=== PATIENT | female | born 1965 | race American Indian/Alaskan Native ===

== ENCOUNTER 2017-05-14 12:02 | Inpatient (IN) | payer OTHER ==
--- NOTE | 2017-05-14 13:02 | ED PDOC ---
Arrival/HPI - General Chief Complaint: Abdominal Pain Time Seen by Provider: 05/14/17 12:04 Historian: Patient - History of Present Illness Narrative History of Present Illness (Text): 05/14/17 12:43 Efrain Kern is a 52 year old female, whose past medical history includes PE (on Coumadin) and hypertension, who presents to the emergency department complaining of LUQ abdominal pain and left lower chest discomfort accompanied with nausea since yesterday morning. Patient describes her pain to be constant, positional, and non-exertional. Patient denies any vomiting, shortness of breath , or any other complaint at this time. Time/Duration: 24 hours (yesterday morning) Symptom Onset: Gradual Symptom Course: Unchanged Activities at Onset: Rest Context: Home Past Medical History - Provider Review Nursing Documentation Reviewed: Yes - Infectious Disease Hx of Infectious Diseases: None - Cardiac Hx Cardiac Disorders: Yes Hx Hypertension: Yes - Pulmonary Hx Asthma: Yes Hx Pulmonary Embolism: Yes - Neurological Hx Neurological Disorder: Yes Hx Seizures: Yes (hx of 3-4 years ago) - HEENT Hx HEENT Disorder: No - Renal Hx Renal Disorder: No - Endocrine/Metabolic Hx Endocrine Disorders: No - Hematological/Oncological Hx Blood Disorders: Yes Hx Anemia: Yes Hx Blood Transfusions: No Other/Comment: iron infusions - Integumentary Hx Dermatological Disorder: No - Musculoskeletal/Rheumatological Hx Musculoskeletal Disorders: No - Gastrointestinal Hx Gastrointestinal Disorders: No - Genitourinary/Gynecological Hx Genitourinary Disorders: No - Psychiatric Hx Psychophysiologic Disorder: No Hx Substance Use: No - Surgical History Hx Hysterectomy: Yes Hx Tubal Ligation: Yes Other/Comment: bowel obstruction repair, CYST REMOVAL. HERNIA REPAIR - Anesthesia Hx Anesthesia: Yes Hx Anesthesia Reactions: No Family/Social History - Physician Review Nursing Documentation Reviewed: Yes Family/Social History: No Known Family HX Smoking Status: Never Smoked Hx Alcohol Use: No Hx Substance Use: No Hx Substance Use Treatment: No Allergies/Home Meds Allergies/Adverse Reactions: Allergies amoxicillin Allergy (Verified 05/14/17 12:10) RASH metoclopramide Allergy (Verified 05/14/17 12:10) RASH Home Medications: Home Meds Medication Instructions Recorded Confirmed Albuterol 0.09 mg IH PRN PRN 08/05/14 05/14/17 Losartan Potassium 100 mg PO DAILY 08/05/14 05/14/17 Meclizine Hydrochloride [Meclizine 50 mg PO DAILY 08/05/14 05/14/17 HCl] Ondansetron ODT [Zofran ODT] 4 mg PO PRN PRN 08/05/14 05/14/17 Propranolol Hydrochloride [Inderal] 10 mg PO DAILY 08/05/14 05/14/17 Warfarin [Coumadin] 5 mg PO DAILY 08/05/14 05/14/17 Physical Exam - Physical Exam Narrative Physical Exam (Text): - Review of Systems Constitutional: Normal. absent: Fatigue, Weight Change, Fevers Eyes: Normal ENT: Normal Respiratory: Normal absent: SOB, Cough, Sputum Cardiovascular: Left Lower chest pain. absent: Palpitations, Syncope Gastrointestinal: LUQ abdominal pain. absent: Diarrhea, Nausea, Vomiting Genitourinary: Normal. absent: Dysuria, Frequency, Hematuria Musculoskeletal: Normal. absent: Arthralgias, Back Pain, Neck Pain Skin: Normal Neurological: Normal absent: Focal Weakness Endocrine: Normal Hemo/Lymphatic: Normal Psychiatric: Normal - Physical exam Patient appears age appropriate, speaking full sentences without difficulty - Systems Exam Head: Present: Atraumatic, Normocephalic Pupils: Present: PERRL Extraocular Muscles: Present: EOMI Conjunctiva: Present: Normal Mouth: Present: Moist Mucous Membranes Neck: Present: Normal Range of Motion. No: MIDLINE TENDERNESS, Paraspinal Tenderness Respiratory/Chest: Present: Clear to Auscultation, Good Air Exchange. No: Respiratory Distress, Accessory Muscle Use, Tachypnic Cardiovascular: Present: Regular Rate and Rhythm, Normal S1, S2, Peripheral Pulses Present. No: Murmurs Abdomen: Present: Normal Bowel Sounds, No: Tenderness, Peritoneal Signs, Rebound, Guarding, Distention Back: Present: Normal Inspection. No: Midline Tenderness, Paraspinal Tenderness Upper Extremity: Present: Normal Inspection. No: Cyanosis, Edema Lower Extremity: Present: Normal Inspection. No: Edema Neurological: Present: GCS=15, Speech Normal, cranial nerves II through XII fully intact with no cerebellar abnormality, neuro-sensory fully intact. No focal neurological deficits. Skin: Present: Warm, Dry, Normal Color. No: Rashes Lymphatic: Present: OX3, NI, NC Psychiatric: Present: Alert, Oriented x 3, Normal Insight, Normal Concentration Vital Signs Reviewed: Yes Vital Signs Temp Pulse Resp BP Pulse Ox 05/14/17 12:15 97.7 F 70 19 144/83 98 Temperature: Afebrile Blood Pressure: Normal Pulse: Regular Respiratory Rate: Normal Appearance: Positive for: Well-Appearing, Non-Toxic, Comfortable Pain Distress: None Mental Status: Positive for: Alert and Oriented X 3 Medical Decision Making ED Course and Treatment: 05/14/17 12:45 Impression: 52 year old female complaining of LUQ abdominal pain and left lower chest discomfort accompanied by nausea since yesterday morning. Differential Diagnosis included but are not limited to: abd pain, PE Plan: -- EKG -- Chest X-ray -- Abdomen and Pelvis CT with contrast -- Angio Chest CT -- Labs -- Toradol -- Reassess and disposition Prior Visits: Notes and results from previous visits were reviewed. Patient last seen in the ED on 08/08/16 for left leg pain for five days. Patient was discharged home. Progress Notes: EKG shows sinus bradycardia at [address]-segment elevations, normal intervals. Interpreted by me. Report Date : 05/14/2017 14:38:35 Procedure: Chest xray Dictator : Vineet Qureshi MD IMPRESSION: No active disease. Report Date : 05/14/2017 16:32:40 PROCEDURE: CT Chest with contrast (Pulmonary Angiogram) Dictator : Paul Iglesias MD IMPRESSION: Unremarkable CT pulmonary angiogram. No pulmonary embolus. 05/14/17 17:12 pt states she still has L. lower chest discomfort will obs for r/o ACS pt states she [place] [facility] aware of and agrees with plan dw Dr. Johnson, accepted to her service with Drs. Holden and luis Bo on consult - Lab Interpretations Lab Results: 05/14/17 13:45 05/14/17 13:45 Lab Results 05/14/17 13:45: PT 21.8 H, INR 2.02 H, APTT 36.7 H 05/14/17 13:45: WBC 3.9 L D, RBC 4.40, Hgb 12.9, Hct 38.3, MCV 87.0, MCH 29.3, MCHC 33.7, RDW 13.0, Plt Count 253, MPV 9.9, Gran % 36.8 L, Lymph % (Auto) 55.1 H, Teton % (Auto) 5.6, Eos % (Auto) 1.5, Baso % (Auto) 1.0, Gran # 1.45, Lymph # 2.2, Teton # 0.2, Eos # 0.1, Baso # 0.04 05/14/17 13:45: Sodium 142, Potassium 4.0, Chloride 101, Carbon Dioxide 29, Anion Gap 16, BUN 13, Creatinine 0.8, Est GFR ( Amer) > 60, Est GFR (Non- Af Amer) > 60, Random Glucose 91, Calcium 9.6, Total Bilirubin 0.5, AST 30, ALT 32, Alkaline Phosphatase 104, Lactate Dehydrogenase 579, Total Creatine Kinase 693 H, CK-MB (CK-2) 0.9, CK-MB (CK-2) % Cancelled, Troponin I < 0.01, Total Protein 8.9 H, Albumin 4.7, Globulin 4.2, Albumin/Globulin Ratio 1.1, Lipase 39 I have reviewed the lab results: Yes - RAD Interpretation Radiology Orders: 05/14/17 12:58 ANGIO CHEST/ABDOMEN/PELVIS [CT] Stat 05/14/17 13:00 CHEST PORTABLE [RAD] Stat - Medication Orders Current Medication Orders: Discontinued Medications Aspirin (Aspirin Chewable) 324 mg PO STAT STA Stop: 05/14/17 17:11 Barium Sulfate (Readi-Cat 2) Confirm Administered Dose 450 ml PO .STK-MED ONE Stop: 05/14/17 13:46 Iodixanol (Visipaque) Confirm Administered Dose 150 ml IV .STK-MED ONE Stop: 05/14/17 13:48 Ketorolac Tromethamine (Toradol) 30 mg IVP STAT STA Stop: 05/14/17 13:01 Last Admin: 05/14/17 13:42 Dose: 30 mg Nitroglycerin (Nitrostat Sl Tab) 0.3 mg SL STAT STA Stop: 05/14/17 17:11 - Scribe Statement The provider has reviewed the documentation as recorded by the Suly Holland Provider Scribe Attestation: All medical record entries made by the Scribe were at my direction and personally dictated by me. I have reviewed the chart and agree that the record accurately reflects my personal performance of the history, physical exam, medical decision making, and the department course for this patient. I have also personally directed, reviewed, and agree with the discharge instructions and disposition. Disposition/Present on Arrival - Present on Arrival Any Indicators Present on Arrival: No History of DVT/PE: Yes History of Uncontrolled Diabetes: No Urinary Catheter: No History of Decub. Ulcer: No History Surgical Site Infection Following: None - Disposition Have Diagnosis and Disposition been Completed?: Yes Diagnosis: Chest pain Disposition: HOSPITALIZED Disposition Time: 17:14 Patient Plan: Observation Patient Problems: Current Active Problems Problem Status Onset Chest pain Acute Condition: FAIR Discharge Instructions (ExitCare): Chest Pain (ED) Referrals: Demetrius Tijerina MD [Primary Care Provider] - Follow up with primary Forms: [employer] (Citizen Of [place])
[2017-05-14] MEDS ORDERED: Barium Sulfate Susp 2.1% w/v, 2.0% w/w 450 mL Bottle PO ONE (13:45)
[2017-05-14] MEDS ORDERED: Iodixanol 320 mg/ml 150 ml Bottle IV ONE (13:47)
[2017-05-14 13:55] LABS: BASO # 0.04 K/mm3 (0.0-2.0); EOS # 0.1 (0.0-0.7); EOS % 1.5 % (1.5-5.0); GRAN # 1.45 (1.4-6.5); GRAN % 36.8 % (50.0-68.0); HEMOGLOBIN 12.9 g/dL (12.0-16.0); LYMPH # 2.2 (1.2-3.4); LYMPH % 55.1 % (22.0-35.0); MEAN CORPUSCULAR HEMOGLOBIN 29.3 pg (25.0-35.0); MEAN CORPUSCULAR HGB CONC 33.7 g/dl (31.0-37.0); MEAN PLATELET VOLUME 9.9 fl (7.0-11.0); MONO # 0.2 (0.1-0.6); MONO % 5.6 % (1.0-6.0); PLATELET COUNT 253 10^3/uL (120.0-450.0); WHITE BLOOD COUNT 3.9 10^3/ul (4.5-11.0)
[2017-05-14 14:04] LABS: INR 2.02 (0.93-1.08); PARTIAL THROMBOPLASTIN TIME 36.7 Seconds (23.7-30.8); PROTHROMBIN TIME 21.8 Seconds (9.9-11.8)
[2017-05-14 14:05] LABS: ALB/GLOB RATIO 1.1 (1.1-1.8); ALBUMIN 4.7 g/dL (3.0-4.8); ALT/SGPT 32 U/L (7-56); AST/SGOT 30 U/L (15-39); BLOOD UREA NITROGEN 13 mg/dL (7-21); CALCIUM 9.6 mg/dL (8.4-10.5); GFR AFRICAN-AMERICAN > 60; GFR NON-AFRICAN AMERICAN > 60; LIPASE 39 U/L (23-300)
[2017-05-14 14:16] LABS: TROPONIN I < 0.01 ng/mL
[2017-05-14 14:21] LABS: CK-MB 0.9 ng/mL (0.0-3.6)
--- NOTE | 2017-05-14 14:40 | RAD ---
HISTORY: cp COMPARISON: 08/05/2014 FINDINGS: LUNGS: No active pulmonary disease. PLEURA: No significant pleural effusion identified, no pneumothorax apparent. CARDIOVASCULAR: Normal. OSSEOUS STRUCTURES: No significant abnormalities. VISUALIZED UPPER ABDOMEN: Normal. OTHER FINDINGS: None. IMPRESSION: No active disease.
--- NOTE | 2017-05-14 16:20 | CARD ---
APPROVED REPORT EKG Measurement Heart [id number] <Conclusion> Sinus bradycardia Otherwise normal ECG
--- NOTE | 2017-05-14 16:34 | CT ---
PROCEDURE: CT Chest with contrast (Pulmonary Angiogram) HISTORY: R/O PE ABDOMINAL PAIN COMPARISON: None available. TECHNIQUE: Axial computed tomography images were obtained of the chest in the pulmonary arterial phase of enhancement. Coronal and sagittal reformatted images were created and reviewed. Intravenous contrast dose: 150 cc of Visipaque Radiation dose: Total exam DLP = 1007 mGy-cm. This CT exam was performed using one or more of the following dose reduction techniques: Automated exposure control, adjustment of the mA and/or kV according to patient size, and/or use of iterative reconstruction technique. FINDINGS: PULMONARY ARTERIES: Unremarkable. No pulmonary embolism. AORTA: No acute findings. No thoracic aortic aneurysm. LUNGS: Unremarkable. No nodule, mass or pulmonary consolidation. PLEURAL SPACES: Unremarkable. No effusion or pneuomothorax. HEART: Unremarkable. No cardiomegaly. No significant pericardial effusion. LYMPH NODES: No lymphadenopathy. BONES, CHEST WALL: Unremarkable. No fracture or destructive lesion OTHER FINDINGS: Unremarkable. IMPRESSION: Unremarkable CT pulmonary angiogram. No pulmonary embolus. PROCEDURE: CT Abdomen and Pelvis with contrast HISTORY: R/O PE ABDOMINAL PAIN COMPARISON: None. TECHNIQUE: This CT exam was performed using one or more of the following dose reduction techniques: Automated exposure control, adjustment of the mA and/or kV according to patient size, and/or use of iterative reconstruction technique. FINDINGS: LIVER: Unremarkable. No gross lesion or ductal dilatation. GALLBLADDER AND BILE DUCTS: Unremarkable. PANCREAS: Unremarkable. No gross lesion or ductal dilatation. SPLEEN: Unremarkable. ADRENALS: Unremarkable. No mass. KIDNEYS AND URETERS: Unremarkable. No hydronephrosis. No solid mass. VASCULATURE: Unremarkable. No aortic aneurysm. BOWEL: Unremarkable. No obstruction. No gross mural thickening. APPENDIX: Normal appendix. PERITONEUM: Unremarkable. No free fluid. No free air. LYMPH NODES: Unremarkable. No enlarged lymph nodes. BLADDER: Unremarkable. REPRODUCTIVE: Unremarkable. BONES: No acute fracture. OTHER FINDINGS: Metallic artifact is seen in the pelvis related to surgical clips IMPRESSION: Unremarkable contrast enhanced CT of the abdomen and pelvis.
[2017-05-14] MEDS ORDERED: Pneumococcal 23-Valent Vaccine IM ONE (23:08)
[2017-05-15] MEDS: Enoxaparin 60 mg Syringe SC SCH ×3 (00:15→23:16)
--- NOTE | 2017-05-15 08:51 | HP ---
The patient was seen and examined in the emergency room on 05/14/2017. CHIEF COMPLAINT: Chest pain and abdominal pain. HISTORY OF PRESENT ILLNESS: Ms. Erlin Zuniga is a 52-year-old female with past medical history of PE, on Coumadin and hypertension and came to the emergency room complaining of left upper quadrant abdominal pain and left lower chest discomfort with nausea since yesterday morning. The patient described her pain to be constant in position and on exertion. The patient denies any vomiting, shortness of breath, or any other complaints. I saw the patient in the emergency room in the presence of the patient's . PAST MEDICAL HISTORY: Hypertension and PE, history of asthma, seizure 3 to 4 years ago, anemia, hysterectomy, tubal ligation, bowel obstruction repair, cyst removal and hernia repair. FAMILY HISTORY: Father and mother noncontributory. HABITS: Never smoked. Alcohol, never. Drug abuse, denied. ALLERGIES: THE PATIENT IS ALLERGIC TO AMOXYCILLIN AND METOCLOPRAMIDE. HOME MEDICATIONS: Albuterol, Losartan, Meclizine, Zofran, Inderal, Warfarin. PHYSICAL EXAMINATION: VITAL SIGNS: Temperature 97.7, pulse 70, respiratory rate 19, blood pressure 144/80, pulse oximetry 98%. HEENT: Head normocephalic and atraumatic. Eyes; PERRLA. Extraocular muscles intact. Clear conjunctiva. Nose patent. Mucous membrane moist. NECK: Supple. No carotid bruit. No thyromegaly. CHEST: Bilaterally symmetrical. HEART: S1 and S2 positive. LUNGS: Clear to auscultation. ABDOMEN: Soft. Bowel sounds normal. No organomegaly. EXTREMITIES: No edema. No cyanosis. NEUROLOGIC: The patient is awake, alert. Moving all four extremities. No focal deficit. LABORATORY DATA: White blood cell of 3.9, hemoglobin 12.9, hematocrit 38.6 and platelets 256. Sodium 142, potassium 4, BUN 30, creatinine 0.8, and glucose 91. ASSESSMENT AND PLAN: Ms. Efrain Kern is a 52-year-old lady with leukopenia, history of hypertension, pulmonary emboli, history of asthma; history of seizure, stable; hysterectomy, tubal ligation, bowel obstruction repair, cyst removal, hernia repair; now came for abdominal pain and chest pain. Scans were then done in the ER, we admitted the above patient for final diagnosis of chest pain. We admitted the patient to give aspirin, nitroglycerin, Pneumovax and Toradol. Consult called with pot washer and paper feeder and GI due to prophylaxis. Repeat labs. We will follow up. Claire Johnson MD
[2017-05-15] MEDS: Pantoprazole 40 mg EC Tab PO SCH (16:30)
[2017-05-15] MEDS: POLYETHYLENE GLYCOL 3350 17 GM/Dose PACKET PO SCH ×2 (18:05→21:31)
[2017-05-15] MEDS ORDERED: Dextrose 5%/0.45% NS 1,000 ML IV SCH (18:15)
--- NOTE | 2017-05-15 20:10 | CP.PCM.PN ---
Subjective - Date & Time of Evaluation Date of Evaluation: 05/15/17 Time of Evaluation: 16:15 Objective - Vital Signs/Intake and Output Vital Signs (last 24 hours): Temp Pulse Resp BP Pulse Ox 97.6 F 66 20 131/73 100 05/15/17 16:26 05/15/17 16:26 05/15/17 16:26 05/15/17 16:26 05/15/17 16:26 - Medications Medications: Current Medications Aspirin (Aspirin) 325 mg PO DAILY [facility] Last Admin: 05/15/17 09:43 Dose: 325 mg Enoxaparin Sodium (Lovenox) 50 mg SC Q12H [facility] PRN Reason: Protocol Last Admin: 05/15/17 11:50 Dose: 50 mg Famotidine (Pepcid) 40 mg PO HS [facility] Home Med (Home Med) 1 unit PO DAILY [facility] Dextrose/Sodium Chloride (Dextrose 5%/0.45% Ns 1000 Ml) 1,000 mls @ 50 mls/hr IV .Q20H [facility] Last Admin: 05/15/17 18:34 Dose: 50 mls/hr Ondansetron HCl (Zofran Inj) 4 mg IVP Q6H PRN PRN Reason: Nausea/Vomiting Last Admin: 05/15/17 14:44 Dose: 4 mg Pantoprazole Sodium (Protonix Ec Tab) 40 mg PO 0600,1600 [facility] Last Admin: 05/15/17 16:30 Dose: 40 mg Polyethylene Glycol (Miralax) 17 gm PO Q4H [facility] Last Admin: 05/15/17 18:05 Dose: 17 gm - Labs Labs: PT 21.8 Seconds (9.9-11.8) H 05/14/17 13:45 INR 2.02 (0.93-1.08) H 05/14/17 13:45 APTT 36.7 Seconds (23.7-30.8) H 05/14/17 13:45 Assessment and Plan - Assessment and Plan (Free Text) Assessment: this patient was seen and evaluated. Today with Jessica Wright APN. Chart and imaging studies reviewed. Complains of pain in epigastric and left upper quadrant area . On examination has mild tenderness in the epigastric area History of PE on anticoagulation being followed by Dr. Landa. 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 Patient says that this was noticed in the MRI done 3 years ago at [facility]. Does not remember having had follow-up Would request ultrasound scan of the abdomen to evaluate the gallbladder Patient's CPK is elevated, we will start IV hydration Would consider MRI of the abdomen with MRCP to further evaluate pancreas after review of the labs in a.m. Patient's INR is elevated would defer endoscopy evaluation at the present time continue PPI Would benefit from hematology follow-up. Patient mentioned that her last pulmonary embolism was 7 years ago patient was discussed with Dr. Johnson Thank you very much for allowing us to participate in the care of the patient
--- NOTE | 2017-05-15 21:48 | CON ---
DATE: 05/15/2017 GASTROENTEROLOGY CONSULT Seen and examined at the bedside earlier today. The chart was reviewed. REQUEST FOR CONSULT: Abdominal pain. HISTORY OF PRESENT ILLNESS: This is a 52-year-old female with a past medical history of PE on Coumadin, hypertension, and asthma, came to the emergency room with complaints of left upper quadrant abdominal pain and chest discomfort. The patient stated it started yesterday morning and also experienced nausea and denies any vomiting. The patient reports its acute onset with that. The patient states that she woke up with this, describes that it worsened. The pain is worse when she coughs or moves. She does have history of chronic constipation and takes Linzess daily. Her last bowel movement was Saturday. Denies any melena or bright red blood. She does report of acid reflux and states that she takes stomach medicine at home, but is unsure of the name. She had an endoscopy and colonoscopy about [address] [facility] and was told that she had irritable bowel syndrome and internal hemorrhoids and chronic gastritis. She denies any shortness of breath, does report fluctuating weight. She did have thyroid ultrasound done, but she is not sure of the results. She also does report that she was told she has a lesion on the tail end of her pancreas, she had an MRI done a year or so ago and she recalls that she was told that she needed an MRI every few months, but recently has not had any recent MRI. She cannot recall her previous GI doctor's name. On admission, she had a CT angio of the chest, abdomen, and pelvis and that was negative for PE. PAST MEDICAL HISTORY: Hypertension, asthma, PE, on Coumadin, her last dose of Coumadin was on Saturday. She was placed on Lovenox in hospital. Seizures, anemia, she is on iron infusions, history of lesion on the pancreas, she was told the tail end. PAST SURGICAL HISTORY: Hysterectomy. After hysterectomy, she had a bowel obstruction repair, then hernia repair. SOCIAL HISTORY: She denies ETOH, smoking, or drugs. ALLERGIES: AMOXICILLIN AND METOCLOPRAMIDE. MEDICATIONS: Reviewed as per MAR, significant for Coumadin. FAMILY HISTORY: Her father, prostate cancer. Cousin with ovarian cancer. REVIEW OF SYSTEMS: Systems reviewed with positive findings, see HPI. PHYSICAL EXAMINATION VITAL SIGNS: Temperature is 97.7, blood pressure 135/80, pulse is 69, respirations 20, and 100% on room air. HEENT: Sclera is anicteric. NECK: Supple. CARDIAC: S1 and S2. LUNGS: Sounds with decreased breath sounds, but clear. ABDOMEN: With bowel sounds, soft, looks softly distended. Positive tenderness and epigastric with diffuse tenderness to left upper quadrant. No rebound or guarding. No organomegaly. EXTREMITIES: Positive pulses. No edema. NEUROLOGIC: Awake, alert and oriented. LABORATORY DATA: From 05/14/2017, her WBC is 3.9, H and H is 12.9 and 38.3, and platelets are 253. PT is 21.8, INR is 2.02, and PTT 36.7. Sodium 142, potassium 4.0, chloride 101, carbon dioxide 29, BUN is 13, and creatinine is 0.8. LFTs are within normal limits. Her total creatine kinase is 693. Troponin is negative x1. Lipase is 39. ASSESSMENT: This is a 52-year-old female with a history of pulmonary emboli, on Coumadin, hypertension, asthma, seizures, came to the emergency room with complaint of atypical chest pain. Rule out any peptic ulcer disease. Also history of pancreatic lesion, rule out any cardiac disease. History of chronic constipation, history of bowel obstruction repair and hernia repair. PLAN: Continue diet as tolerated. The patient is currently on Lovenox 50 q.12 h. We will continue with Pepcid in the evening. She is also on aspirin. She did have a CT angio and that did not report any acute abdominal findings, which was negative for any obstruction or mural thickening. The pancreas was unremarkable. May benefit from upper endoscopy when optimal. Consider MRCP. The patient also had a cardiac evaluation. Thank you for this consult and for allowing us to participate in your patient's care. We will make further recommendation based upon clinical course. Seen and discussed with Dr. Baptiste. TOÑO Campbell GILLIAN
--- NOTE | 2017-05-15 21:49 | US ---
EXAM: US Abdomen Complete CLINICAL HISTORY: The patient age is 52 years old and is female; Pain; Abdominal pain Facility exam id and description: Us abd abdomen complete TECHNIQUE: Real-time ultrasound of the abdomen (complete) with image documentation. EXAM DATE/TIME: 05/15/2017 6:13 PM COMPARISON: CT - ANGIO CHEST/ABDOMEN/PELVIS 05/14/2017 3:13:13 PM FINDINGS: Liver: The liver is increased in echogenicity, most commonly due to fatty infiltration, but other chronic liver diseases may have a similar appearance. The liver measures 13.1 x 1.9 cm. Gallbladder: No discrete gallstones. No significant gallbladder wall thickening or pericholecystic fluid. Common bile duct: The common bile duct measures 0.4 cm in diameter, which is within normal limits. Pancreas: There is a limited evaluation of the tail of the pancreas due to bowel gas. No focal abnormality is seen within the visualized head or body of the pancreas. Kidneys: The right kidney measures 9.3 x 3.3 x 5.3 cm. The left kidney measures 9.2 x 4.3 x 5.2 cm. Hypoechogenicity is visualized at the midpole of the left kidney, likely due to hypertrophy of the column of Rory. There is no hydronephrosis of the bilateral kidneys. No shadowing stones. Spleen: The spleen measures 8.0 x 3.1 cm and is normal in echotexture. Aorta: There is a limited evaluation of the abdominal aorta. The visualized segment is patent. Inferior vena cava: The visualized segment of the IVC is patent. IMPRESSION: 1. The liver is increased in echogenicity, most commonly due to fatty infiltration, but other chronic liver diseases may have a similar appearance. 2. No sonographic evidence of acute cholecystitis. 3. Additional findings described above.
--- NOTE | 2017-05-16 00:33 | CON ---
DATE: 05/15/2017 LOCATION: The patient is in Room 366, Bed 3. REASON FOR CONSULTATION: Abdominal pain, history of hypertension, history of pulmonary embolism, chest pain. HISTORY OF PRESENT ILLNESS: The patient is 52-year-old female, known case of hypertension and previously had pulmonary embolism and then thrombophlebitis, on Coumadin therapy, admitted with two days' history of dull pain in the epigastrium area, which radiates directly to the back and is increased by inspiration, cough and sneezing, has no relation to exertion. The patient feels nausea, but denies vomiting or diarrhea or hematemesis or melena. She feels her stomach is bloated as compared to before. The patient has no cardiac history in the past. PAST MEDICAL HISTORY: Positive for hypertension, pulmonary embolism, thrombophlebitis. She had a history of hysterectomy and she had also surgery for bowel obstruction. As mentioned before, had pulmonary embolism and thrombophlebitis in the past. She also had surgery for hernia. FAMILY HISTORY: The patient has a very strong family history of coronary artery disease, Mother and her brother and her cousin they all had coronary artery disease in their 40's. HOME MEDICATIONS: The patient was on losartan, meclizine, Inderal, warfarin, albuterol. The patient at home was also taking Inderal. PERSONAL HISTORY: Denies smoking or drinking. ALLERGIES: THE PATIENT IS ALLERGIC TO AMOXICILLIN AND METOCLOPRAMIDE. PHYSICAL EXAMINATION: VITAL SIGNS: Blood pressure 135/80, respirations 20, pulse 69, temperature 97.7. HEENT: Normocephalic. Eyes: Pupils normal, conjunctiva normal. Nose and throat normal. NECK: JVP low. Carotid equal. THORAX: AP diameter normal. ABDOMEN: The patient has tenderness in the epigastric area. The abdomen otherwise is soft, no organomegaly, bowel sounds are normal. EXTREMITIES: No clubbing, no cyanosis. LABORATORY DATA: WBC 3.9, hemoglobin 12.9, hematocrit 38.3, platelets 253. Sodium 142, potassium 4.0, BUN 13, creatinine 0.8. AST and ALT normal. Total CPK 693. Troponin less than 0.01. EKG shows sinus bradycardia 58 per minute. Chest x-ray no significant abnormality. CT of abdomen and pelvis with contrast did not show any significant abnormality. DIAGNOSES: Chest and abdominal pain. This pain is related to gastrointestinal region with nausea and bloating and tenderness in the epigastrium. History of hypertension, history of pulmonary embolism and thrombophlebitis. PLAN: The patient's prothrombin time to be 1.8, INR 2.02. The patient's symptoms relate to GI, so I spoke to Samantha of Dr. Emile hunt and told her that they can go ahead with GI workup and clinically from cardiac point of view cardiac state is stable and she can go for GI procedure if needed. The patient's heart rate is 58 probably related to Inderal therapy, which she has been taking at home. Now, the patient is on aspirin 325 mg p.o. daily. At this moment, patient is also on Pepcid 40 mg at nighttime. The patient is also getting Lovenox 50 mg subcutaneous q. 12 hours. When the patient's GI is stabilized, the patient will follow outpatient for further followup and cardiac testing like a stress test will be done as outpatient because of her strong family history. At present patient has no symptoms and from cardiac point of view, her symptoms are related to GI, so we will proceed with a GI workup and we will monitor and followup. Maren Choudhary MD
--- NOTE | 2017-05-16 01:21 | CON ---
PULMONARY CONSULTATION NOTE DATE: 05/15/2017 REFERRING PHYSICIAN: Dr. Johnson REASON FOR CONSULTATION: History of pulmonary embolism,chronic obstructive lung disease, sleep apnea syndrome, and history of GERD. HISTORY OF PRESENT ILLNESS: This is a 52-year-old female with past medical history significant for pulmonary embolism, hypertension, history of chronic obstructive lung disease, history of seizure in the remote past, anemia, recently diagnosed with sleep apnea syndrome, has a CPAP at home and uses it, came into the emergency room with atypical chest pain and shortness of breath. CT angio was done, which is negative for PE. Admitted for further workup. PAST MEDICAL HISTORY: As per history of present illness. FAMILY HISTORY: No significant cardiopulmonary disease reported. SOCIAL HISTORY: No history of smoking or alcohol use. ALLERGIES: AMOXICILLIN AND METOCLOPRAMIDE. MEDICATIONS: She is on aspirin, Lovenox and Pepcid. REVIEW OF SYSTEMS: No headache. No rhinitis. No cough or shortness of breath. Had a retrosternal discomfort. No nausea. No dysuria. No leg pain or leg swelling. PHYSICAL EXAMINATION GENERAL: Lying in the bed, in no acute distress. VITAL SIGNS: Temperature is 98, heart rate is 60, respiratory rate is 20, blood pressure 135/80, pulse oximetry 100% on room air. HEENT: Moist mucous membrane. Crowded airway. NECK: Supple. No JVD. LUNGS: Fair airflow with rhonchi. HEART: S1 and S2. ABDOMEN: Positive epigastric tenderness. EXTREMITIES: There is no edema. NEUROLOGIC: Awake, alert, follows simple commands. LABORATORY DATA: Hemoglobin 12.9, hematocrit 38.3, WBC 3.9, platelet count is 253. INR is 2.02. PTT is 37. Sodium 142, potassium 4.0, chloride 101, bicarbonate is 29, BUN 15, creatinine 0.8, calcium 9.6, AST 30, ALT 32, alk phos is 104, troponin is less than 0.01, albumin is 4.7, lipase is 39. CT scan of the chest, abdomen and pelvis is done, which shows metallic artifact seen in the pelvis related to old surgery. CT of the chest , abdomen, and pelvis is unremarkable. IMPRESSION: Atypical chest pain, probably has a gastroesophageal reflux and gastritis, history of pulmonary embolism, asthma, sleep apnea syndrome, hypertension, history of seizure disorder. From a pulmonary point of view, doing okay. Continue bronchodilator. Keep head at 45 degree. Add Protonix 40 mg twice a day. Make a gastrointestinal consult to evaluate. Could be follow as an outpatient by gastrointestinal. We will place her on CPAP for tonight. Maren Bo MD
--- NOTE | 2017-05-16 05:23 | PN ---
SUBJECTIVE: The patient is a 52-year-old female. The patient is seen and examined at the bedside, looking comfortable, sitting at the bedside also still complaining lot of pain in the midepigastric area moving to the back. No nausea, no vomiting, or diarrhea. No hematuria or hematochezia. No headache, no dizziness, no congestion. No swelling of the leg. PHYSICAL EXAMINATION: VITAL SIGNS: Temperature 97.6, pulse 66, blood pressure 131/76, respiratory 20. HEENT: Head is normocephalic and atraumatic. Eyes; PERRLA. Extraocular muscles intact. Clear conjunctiva. Nose patent. Mucous membrane moist. NECK: Supple. No carotid bruits or thyromegaly. CHEST: Bilaterally symmetrical. HEART: S1 and S2 positive. LUNGS: Clear to auscultation. ABDOMEN: Soft. Bowel sounds positive. No organomegaly. EXTREMITIES: No edema. No cyanosis. NEUROLOGIC: The patient is awake, alert. Moving all four extremities. No focal deficit. MEDICATIONS: Aspirin, dextrose, Lovenox, Miralax, Pepcid, Protonix, Zofran. LABORATORY DATA: White blood cell of 3.9, hemoglobin 12.9, hematocrit 38.3 and platelets 253. ASSESSMENT AND PLAN: Ms. Erlin Zuniga is a 52-year-old lady with leukopenia, increased creatine kinase, getting IV fluid. We will followup that followup about creatine kinase. She came with midepigastric pain seen by Dr. Baptiste, hogshead wrecker, have a length of time discussion done with him. The patient has history of pulmonary embolism, was on Coumadin, as of the patient has followup with Dr. Landa. 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 Baptiste. The patient has this well noticed in the MRI done three years ago in this medical center. Does not remember having any followup, but Dr. Baptiste done ultrasound of the abdomen to evaluate the gallbladder. We will consider MRI of the abdomen with MRCP to further evaluation of pancreatic after reviewing of labs of MRI in the morning, want to do endoscopy, because of INR, defer endoscopy, continue PPI. We will put followup with Dr. Landa. Length of time discussion done with Dr. Baptiste, appreciated. Ultrasound of the abdomen done reviewed by me. The liver is increased in echogenicity, most commonly due to fatty infiltration, but other chronic liver disease may have smiler appearance. No sonography evidence of acute cholecystitis. She had CAT scan of chest, abdomen and pelvis reviewed by me. The patient has history of hypertension, asthma, history of seizures, history of anemia, has history of iron infusion. Gastrointestinal and deep vein thrombosis prophylaxis. Cardiology and pulmonary consult also called. Awaiting for input and we will followup. Claire Johnson MD
[2017-05-16 07:30] LABS: INR 2.1 (0.93-1.08); PROTHROMBIN TIME 22.7 Seconds (9.9-11.8)
[2017-05-16 07:36] LABS: BLOOD UREA NITROGEN 16 mg/dL (7-21); CALCIUM 8.8 mg/dL (8.4-10.5); GFR AFRICAN-AMERICAN > 60; GFR NON-AFRICAN AMERICAN > 60
[2017-05-16 07:51] LABS: CK-MB 0.9 ng/mL (0.0-3.6)
--- NOTE | 2017-05-16 08:44 | CP.PCM.PN ---
<Jessica Wright - Last Filed: 05/16/17 15:17> Subjective - Date & Time of Evaluation Date of Evaluation: 05/16/17 Time of Evaluation: 08:15 - Subjective Subjective: S&E at bedside, No N/V, abdominal pain improved but still present, No BM last night, did receive Miralax. No SOB or chest pain. On BIPAP, no respiratory distress or acute overnight events. Objective - Vital Signs/Intake and Output Vital Signs (last 24 hours): Temp Pulse Resp BP Pulse Ox 97.5 F L 69 21 150/80 100 05/16/17 08:26 05/16/17 08:26 05/16/17 08:26 05/16/17 08:26 05/16/17 08:26 Intake and Output: 05/16/17 05/16/17 06:59 18:59 Intake Total 600 480 Balance 600 480 - Medications Medications: Current Medications Aspirin (Aspirin) 325 mg PO DAILY [facility] Last Admin: 05/15/17 09:43 Dose: 325 mg Enoxaparin Sodium (Lovenox) 50 mg SC Q12H [facility] PRN Reason: Protocol Last Admin: 05/15/17 23:16 Dose: 50 mg Famotidine (Pepcid) 40 mg PO HS [facility] Last Admin: 05/15/17 21:31 Dose: 40 mg Home Med (Home Med) 1 unit PO DAILY [facility] Dextrose/Sodium Chloride (Dextrose 5%/0.45% Ns 1000 Ml) 1,000 mls @ 50 mls/hr IV .Q20H [facility] Last Admin: 05/15/17 18:34 Dose: 50 mls/hr Ondansetron HCl (Zofran Inj) 4 mg IVP Q6H PRN PRN Reason: Nausea/Vomiting Last Admin: 05/15/17 21:30 Dose: 4 mg Pantoprazole Sodium (Protonix Ec Tab) 40 mg PO 0600,1600 [facility] Last Admin: 05/15/17 16:30 Dose: 40 mg Polyethylene Glycol (Miralax) 17 gm PO Q4H [facility] Last Admin: 05/15/17 21:31 Dose: 17 gm - Labs Labs: 05/16/17 07:00 PT 22.7 Seconds (9.9-11.8) H 05/16/17 07:00 INR 2.10 (0.93-1.08) H 05/16/17 07:00 APTT 36.7 Seconds (23.7-30.8) H 05/14/17 13:45 - Constitutional Appears: No Acute Distress - Head Exam Head Exam: NORMOCEPHALIC - Eye Exam Eye Exam: Normal appearance. absent: Scleral icterus - ENT Exam ENT Exam: Mucous Membranes Moist - Neck Exam Neck Exam: Normal Inspection - Respiratory Exam Respiratory Exam: NORMAL BREATHING PATTERN. absent: Rales, Wheezes, Respiratory Distress - Cardiovascular Exam Cardiovascular Exam: +S1, +S2 - GI/Abdominal Exam GI & Abdominal Exam: Soft, Tenderness (epigastric), Normal Bowel Sounds. absent : Guarding, Organomegaly, Rebound - Extremities Exam Extremities Exam: Normal Capillary Refill. absent: Calf Tenderness, Pedal Edema - Neurological Exam Neurological Exam: Alert, Awake, Oriented x3 - Skin Skin Exam: Dry, Warm Assessment and Plan - Assessment and Plan (Free Text) Assessment: ASSESSMENT: Atypical chest pain, negative CT angio Abdominal Pain: epigastric /LUQ. abdominal US negative, no GB stone, CBD0.4 cm Chronic Constipation PE, on Comadin H/O Pancreatic lesion per pt H/O Bowel obstruction repair Hernia Repair Elevated CPK HTN PLAN: change diet to clear liquid and will give patient a half gallon of GoLYTELy On Lovenox continue PPI twice a day, will DC Pepcid for the evening May benefit from EGD when optimal, no plan now, INR is elevated, can consider outpatient, for hematology evaluation considering doing MRCP w/w out contrast but CPK is more elevated, unsure etiology, on IVF for hydration, will currently hold off for today and repeat CPK in the a.m. Will increase IVF from 50 cc to 70 cc per hour to bring Linzess. Appreciate cardiology recommendations, did speak to yesterday, may proceed with endoscopic GI workup if necessary at this time. discussed with patient and nursing staff Seen and discussed w/ Dr. Baptiste. <Lakshmi Baptiste V - Last Filed: 05/16/17 22:28> Objective - Vital Signs/Intake and Output Vital Signs (last 24 hours): Temp Pulse Resp BP Pulse Ox 98.4 F 60 20 144/90 100 05/16/17 16:00 05/16/17 18:00 05/16/17 16:00 05/16/17 16:00 05/16/17 08:26 Intake and Output: 05/16/17 05/17/17 18:59 06:59 Intake Total 1320 420 Balance 1320 420 - Medications Medications: Current Medications Aspirin (Aspirin) 325 mg PO DAILY [facility] Last Admin: 05/16/17 10:04 Dose: 325 mg Enoxaparin Sodium (Lovenox) 50 mg SC Q12H [facility] PRN Reason: Protocol Last Admin: 05/16/17 09:45 Dose: Not Given Home Med (Home Med) 1 unit PO DAILY [facility] Last Admin: 05/16/17 10:04 Dose: Not Given Dextrose/Sodium Chloride (Dextrose 5%/0.45% Ns 1000 Ml) 1,000 mls @ 70 mls/hr IV .[id number] [facility] Ketorolac Tromethamine (Toradol) 30 mg IVP Q6 PRN PRN Reason: Pain, moderate (4-7) Last Admin: 05/16/17 18:25 Dose: 30 mg Ondansetron HCl (Zofran Inj) 4 mg IVP Q6H PRN PRN Reason: Nausea/Vomiting Last Admin: 05/16/17 15:32 Dose: 4 mg Pantoprazole Sodium (Protonix Ec Tab) 40 mg PO 0600,1600 [facility] Last Admin: 05/15/17 16:30 Dose: 40 mg Polyethylene Glycol (Miralax) 17 gm PO Q4H [facility] Last Admin: 05/16/17 22:04 Dose: 17 gm - Labs Labs: 05/16/17 07:00 PT 22.7 Seconds (9.9-11.8) H 05/16/17 07:00 INR 2.10 (0.93-1.08) H 05/16/17 07:00 APTT 36.7 Seconds (23.7-30.8) H 05/14/17 13:45 Attending/Attestation - Attestation I have personally seen and examined this patient.: Yes I have fully participated in the care of the patient.: Yes I have reviewed all pertinent clinical information, including history, physical exam and plan: Yes Notes (Text): lamar
[2017-05-16] MEDS: Enoxaparin 60 mg Syringe SC SCH (09:45)
[2017-05-16] MEDS ORDERED: LINZESS 290 MCG PO SCH (10:00)
[2017-05-16] MEDS: POLYETHYLENE GLYCOL 3350 17 GM/Dose PACKET PO SCH ×5 (10:04→22:04)
[2017-05-16] MEDS ORDERED: Peg-Electrolyte Oral Soln 4L (Golytely) PO ONE (10:14)
[2017-05-16] MEDS ORDERED: Dextrose 5%/0.45% NS 1,000 ML IV SCH (10:30)
--- NOTE | 2017-05-16 17:34 | PN ---
DATE OF PROGRESS NOTE: 05/16/2017 LOCATION: The patient in room 366, bed 3. REASON FOR CONSULTATION: Abdominal pain, chest pain, hypertension, history of pulmonary embolism. SUBJECTIVE: The patient still has pain in the epigastrium which goes to the back and sometime to the retrosternal area and it also gets worse on sneezing or cough or deep inspiration. PHYSICAL EXAMINATION: VITAL SIGNS: Blood pressure 150/80, respiration 21, pulse 69, temperature 97.5. HEENT: Head is normocephalic. Eyes, pupils normal. Conjunctivae are normal. Nose and throat are normal. NECK: JVP low. Carotid equal. Thorax, AP diameter normal. LUNGS: Clear. CARDIOVASCULAR: S1 and S2. ABDOMEN: Soft, nontender. No organomegaly. EXTREMITIES: No clubbing. No cyanosis. LABORATORY DATA: Sodium 139, potassium 4.4, BUN 16, creatinine 0.9. CBC was done in they were reported in my consult yesterday. Total CPK 1062, troponin less than 0.01. The patient's prothrombin time 22.7, INR 2.10. DIAGNOSES: Chest and abdominal pain. This pain is related to gastrointestinal region with nausea, bloating and tenderness in the epigastrium, history of hypertension, history of pulmonary embolism, and thrombophlebitis. PLAN: As mentioned above. Pain in epigastrium and chest is actually GI in origin, so we will continue to do GI workup. The patient is on Lovenox 50 mg subcutaneous q.12 hours. We will hold that because the patient's INR is still therapeutic with 2.10. From cardiac point, the patient can go for GI procedure. We will repeat PT/INR in the morning. We will follow with you. Maren Choudhary MD
--- NOTE | 2017-05-16 23:36 | PN ---
DATE: 05/16/2017 REFERRING PHYSICIAN: Dr. Johnson. SUBJECTIVE: She is lying in the bed at 45 degrees, at bedside, still has epigastric pain. No shortness of breath. No chest pain, no leg pain, no leg swelling. She has chronic constipation. PHYSICAL EXAMINATION GENERAL: In no acute distress. VITAL SIGNS: Temperature is 98, heart rate is 70, respiratory rate is 20, blood pressure 144/90, pulse ox 100%. HEENT: Moist mucous membranes. Crowded airway. NECK: Supple. No JVD. HEART: S1, S2. LUNGS: Fair air flow with few rhonchi. ABDOMEN: Soft, mild epigastric pain. EXTREMITIES: There is no edema. NEUROLOGIC: Awake, alert, follows simple commands. LABORATORY DATA: Shows INR 2.10. Sodium 139, potassium 4, chloride 103, bicarbonate 27, BUN 16, creatinine 0.9, glucose 87, calcium 8.8. Creatine kinase is 1062. An abdominal ultrasound done today which shows liver is increased in echogenicity, most commonly due to fatty infiltrate, otherwise unremarkable. MEDICATIONS: She is on aspirin 325 mg daily, IV fluid, D5 half normal saline 70 mL per hour, Lovenox 50 mg subcu q.12 hours which is on hold. Miralax 17 g daily. Protonix 40 mg q.12 hours. Toradol 30 mg q.6 hours p.r.n. Zofran p.r.n. basis. IMPRESSION AND PLAN: Chronic obstructive lung disease, history of pulmonary embolism, sleep apnea syndrome, hypertension, seizure disorder, cardiac versus GI cause of chest pain is being ruled out. Spoke to the patient at bedside. All the questions answered. The patient getting GoLYTELY for personal procedure for tomorrow. *------* sleep apnea precautions. Close cardiopulmonary monitoring was suggested. Maren Bo MD
[2017-05-17] MEDS: POLYETHYLENE GLYCOL 3350 17 GM/Dose PACKET PO SCH (05:33)
[2017-05-17] MEDS: Pantoprazole 40 mg EC Tab PO SCH ×2 (05:34→17:29)
[2017-05-17 08:06] LABS: INR 1.8 (0.93-1.08); PROTHROMBIN TIME 19.4 Seconds (9.9-11.8)
[2017-05-17 08:08] LABS: ALB/GLOB RATIO 1.2 (1.1-1.8); ALBUMIN 4.5 g/dL (3.0-4.8); ALT/SGPT 31 U/L (7-56); AST/SGOT 45 U/L (15-39); BLOOD UREA NITROGEN 12 mg/dL (7-21); CALCIUM 9.2 mg/dL (8.4-10.5); GFR AFRICAN-AMERICAN > 60; GFR NON-AFRICAN AMERICAN > 60
[2017-05-17 08:24] LABS: CK-MB 1.5 ng/mL (0.0-3.6)
--- NOTE | 2017-05-17 11:14 | CP.PCM.PN ---
Subjective - Date & Time of Evaluation Date of Evaluation: 05/17/17 Time of Evaluation: 08:25 - Subjective Subjective: Seen and examined at the bedside this morning, chart was reviewed. Patient tolerated half a gallon of GoLYTELY and had at least 3 loose bowel movements, with minimal relief. Does complain of bloating. And mostly epigastric soreness. No reports of any melena or bright red blood per rectum. Denies shortness of breath, chest pain, fever or chills. No acute overnight events reported. Objective - Vital Signs/Intake and Output Vital Signs (last 24 hours): Temp Pulse Resp BP Pulse Ox 97.9 F 61 20 140/84 99 05/17/17 06:00 05/17/17 06:00 05/17/17 06:00 05/17/17 06:00 05/17/17 06:00 Intake and Output: 05/17/17 05/17/17 06:59 18:59 Intake Total 1610 Balance 1610 - Medications Medications: Current Medications Aspirin (Aspirin) 325 mg PO DAILY [facility] Last Admin: 05/16/17 10:04 Dose: 325 mg Enoxaparin Sodium (Lovenox) 50 mg SC Q12H [facility] PRN Reason: Protocol Last Admin: 05/16/17 09:45 Dose: Not Given Home Med (Home Med) 1 unit PO DAILY [facility] Last Admin: 05/16/17 10:04 Dose: Not Given Dextrose/Sodium Chloride (Dextrose 5%/0.45% Ns 1000 Ml) 1,000 mls @ 70 mls/hr IV .[id number] [facility] Last Admin: 05/17/17 05:37 Dose: 70 mls/hr Ketorolac Tromethamine (Toradol) 30 mg IVP Q6 PRN PRN Reason: Pain, moderate (4-7) Last Admin: 05/16/17 18:25 Dose: 30 mg Ondansetron HCl (Zofran Inj) 4 mg IVP Q6H PRN PRN Reason: Nausea/Vomiting Last Admin: 05/16/17 15:32 Dose: 4 mg Pantoprazole Sodium (Protonix Ec Tab) 40 mg PO 0600,1600 [facility] Last Admin: 05/17/17 05:34 Dose: Not Given - Labs Labs: 05/17/17 07:00 PT 19.4 Seconds (9.9-11.8) H 05/17/17 07:00 INR 1.80 (0.93-1.08) H 05/17/17 07:00 APTT 36.7 Seconds (23.7-30.8) H 05/14/17 13:45 - Constitutional Appears: No Acute Distress - Head Exam Head Exam: NORMOCEPHALIC - Eye Exam Eye Exam: Normal appearance. absent: Scleral icterus - ENT Exam ENT Exam: Mucous Membranes Moist - Neck Exam Neck Exam: Normal Inspection - Respiratory Exam Respiratory Exam: Clear to Ausculation Bilateral, NORMAL BREATHING PATTERN. absent: Respiratory Distress - Cardiovascular Exam Cardiovascular Exam: +S1, +S2 - GI/Abdominal Exam GI & Abdominal Exam: Distended, Soft, Tenderness (epigastric), Normal Bowel Sounds. absent: Guarding, Rebound - Extremities Exam Extremities Exam: Normal Capillary Refill. absent: Calf Tenderness, Pedal Edema - Neurological Exam Neurological Exam: Alert, Awake, Oriented x3 - Skin Skin Exam: Dry, Warm Assessment and Plan - Assessment and Plan (Free Text) Assessment: ASSESSMENT: Atypical chest pain, negative CT angio Abdominal Pain: epigastric /LUQ. abdominal US negative, no GB stone, CBD0.4 cm Chronic Constipation PE, on Comadin H/O Pancreatic lesion per pt H/O Bowel obstruction repair Hernia Repair Elevated CPK HTN PLAN: continue clear liquid diet, patient does not want to advance to have further BM On Lovenox continue PPI twice a day continue with Linzess MRCP when optimal discussed with patient and nursing staff Seen and discussed w/ Dr. Baptiste. 11:00AM Addendum: will plan for diagnostic EGD this afternoon, had Aspirin this am, spoke to YAQUELIN Yao and patient is made aware. NPO now.
--- NOTE | 2017-05-17 12:48 | PN ---
DATE: 05/16/2017 SUBJECTIVE: The patient was seen on the bedside, still having abdominal pain and no bowel movement, cannot tolerate regular food, started back on liquid diet, drinking GoLYTELY, abdominal pain is starting from the epigastric area and going to the back. PHYSICAL EXAMINATION VITAL SIGNS: Temperature 97.5, pulse 69, respiratory rate is 21, blood pressure 150/80, and pulse oximetry 100%. HEENT: Head is normocephalic and atraumatic. Eyes: PERRLA. Extraocular muscles intact. Conjunctivae clear. Nose is patent. Mucous membrane moist. NECK: Supple. No carotid bruits. No JVD or thyromegaly. CHEST: Bilaterally symmetrical. HEART: S1 and S2 positive. LUNGS: Clear to auscultation. ABDOMEN: Soft. Bowel sounds are present. No organomegaly. EXTREMITIES: No edema. No cyanosis. NEUROLOGIC: The patient is awake and alert. Moving all 4 extremities. No focal deficit. MEDICATIONS: Aspirin, Lovenox, Pepcid, NS, Zofran, Protonix, MiraLax. LABORATORY DATA: Sodium 130, potassium 4.4, BUN 16, creatinine 0.9, glucose 87, chloride 103, and carbon dioxide 27. ASSESSMENT AND PLAN: Ms. Efrain Kern is a 52 years old lady who came with epigastric pain, still has pain. Abdominal ultrasound negative, no gallbladder stones, constipation acute on chronic, pulmonary embolism on Coumadin, chest pain, negative CT angio, history of pancreatic lesion, history of bowel obstruction or repair, hernia repair, elevated CPK, hypertension. Changed patient diet to clear liquid, and gave gallon of GoLYTELY to drink, on Lovenox, continue PPI. According to Gastrointestinal, patient will get benefit from EGD. Iron is elevated. Going for MRCP with and without contrast, but CPT is more elevated, unsure about etiology. On IV fluids for hydration. Gastrointestinal increased the IV fluid from 50 mL to 70 mL per hour. We do not know the cause of increased CPK. Discussion done with Dr. Baptiste. Reviewed Dr. Baptiste's notes. Chronic obstructive lung disease, history of pulmonary embolism, sleep apnea syndrome, history of seizures, cardiac versus gastrointestinal cause of pain, both Manhole Stripper and Margin Trimmer is on the case. Close cardiopulmonary monitoring is suggested during the procedure by Dr. Bo. We will followup. Claire Johnson MD
--- NOTE | 2017-05-17 14:55 | PN ---
DATE: 05/17/2017 LOCATION: The patient in room 366, bed #3. REASON FOR CONSULTATION AND FOLLOWUP: Abdominal pain, chest pain, hypertension, history of pulmonary embolism. SUBJECTIVE: The patient is still complaining of epigastric area pain which gets worse on taking deep inspiration, cough, or sneezing. She has nausea but no vomiting. Sometimes same pain she has also in the lower retrosternal region. The patient complaining the pain as above. PHYSICAL EXAMINATION: VITAL SIGNS: Blood pressure 140/84, respirations 20, pulse 61, and temperature 97.9. HEENT: Head is normocephalic. Eyes, pupils normal. Conjunctivae normal. Nose and throat are normal. NECK: JVP low. Carotid equal. Thorax, AP diameter normal. LUNGS: Clear. CARDIOVASCULAR: S1 and S2. ABDOMEN: The patient had tenderness in the epigastric area. EXTREMITIES: No clubbing. No cyanosis. LABORATORY DATA: Shows sodium 140, potassium 3.7, BUN 12, creatinine 0.8. Total CPK 1090, troponin less than 0.01, total protein 8.5, albumin 4.5, AST 45, ALT 31. CBC: WBC 3.9, hemoglobin 12.9, hematocrit 38.3, platelet 253. DIAGNOSES: Chest and abdominal pain that has been related to gastrointestinal tract with nausea and bloating and also tenderness in the epigastrium, history of hypertension, history of pulmonary embolism and thrombophlebitis. PLAN: The patient's today's prothrombin time 19.4 with INR 1.80. The patient on aspirin 325 mg p.o. daily. The patient getting IV fluid therapy, Lovenox on hold, Protonix 40 mg p.o. b.i.d. GI has been following. The patient from cardiac point of view can go for any GI procedure if needed, and we will continue to follow closely with you. Maren Choudhary MD
[2017-05-17] MEDS ORDERED: Propofol 10 mg/ml Inj (20 ML) ONE (15:21)
[2017-05-17] MEDS ORDERED: Midazolam 2 MG/2 ML VIAL ONE (15:22)
[2017-05-17] MEDS ORDERED: Sodium Chloride 0.9% 1,000 ML IV SCH (15:45)
[2017-05-17 15:53] VITALS: RESP 14; TEMP 98
[2017-05-17 16:13] VITALS: O2SAT 97
[2017-05-17 16:28] VITALS: BP 145/97
[2017-05-17 18:15] VITALS: PULSE 74
--- NOTE | 2017-05-17 23:19 | PN ---
PULMONARY PROGRESS NOTE DATE: 05/17/2017 SUBJECTIVE: She is out of bed to chair, feels a little better, still has an epigastric discomfort. Had acute bowel movement overnight. No cough and no sputum production. No dysuria. No leg pain or leg swelling. PHYSICAL EXAMINATION GENERAL: No acute distress. VITAL SIGNS: Temperature is 98, heart rate is 86, respiratory rate is 20, blood pressure 145/97, pulse ox 97% on 3 liter nasal cannula. HEENT: Moist mucous membrane. Crowded airway. NECK: Supple. No JVD. LUNGS: Fair airflow with rhonchi. HEART: S1 and S2. ABDOMEN: Mild epigastric tenderness. EXTREMITIES: There is no edema. NEUROLOGIC: Awake and alert. Follow simple commands. MEDICATIONS: She is aspirin 325 mg daily, IV fluid D5 half normal saline 70 mL per hour, Lovenox 50 mg subcutaneous q.12 h., which is on hold, Protonix 40 mg daily, IV fluid normal saline also written, Tramadol 30 mg q.6 h. p.r.n., Zofran on a p.r.n. basis. LABORATORY DATA: Shows CPK total is 1090. Sodium 140, potassium 3.7, chloride 101, bicarbonate 28, BUN 12, creatinine 0.8, calcium 9.2.. AST 45, ALT 31, alkaline phosphatase is 101. IMPRESSION AND PLAN: Chronic obstructive lung disease, pulmonary embolism, sleep apnea syndrome, hypertension, seizure disorder, cardiac versus GI related pain. GI workup is in progress, being followed by cardiology. No specific CPK elevated. Cause is unknown. Continue on bronchodilator. Keep head at 45 degree. We will make further recommendation once GI workup is finished. Maren Bo MD
== END 2017-05-17 19:00 | disposition home or self-care (01) | DRG 177 ==
LOC: ED 12:02 → ERH 17:11 → 3RNO 20:16 → OBSVTOIN 05-15 23:27
PROVIDERS: ADMIT Internal Medicine; ATTEND Internal Medicine
PROC: 0DJ08ZZ Inspection of Upper Intestinal Tract, Via Natural or Artificial Opening Endoscopic (ICD-10-PCS; principal; 2017-05-17 14:00)
DX: K25.9 Gastric ulcer, unspecified as acute or chronic, without hemorrhage or perforation (principal); J44.9 Chronic obstructive pulmonary disease, unspecified; I10 Essential (primary) hypertension; K29.80 Duodenitis without bleeding; K31.9 Disease of stomach and duodenum, unspecified; D64.9 Anemia, unspecified; G47.30 Sleep apnea, unspecified; G40.909 Epilepsy, unspecified, not intractable, without status epilepticus; K59.09 Other constipation; K21.9 Gastro-esophageal reflux disease without esophagitis; R07.89 Other chest pain; Z79.01 Long term (current) use of anticoagulants; Z86.711 Personal history of pulmonary embolism; Z86.72 Personal history of thrombophlebitis; Z88.1 Allergy status to other antibiotic agents

== ENCOUNTER 2017-12-01 17:26 | Emergency (ER) | payer OTHER ==
--- NOTE | 2017-12-01 17:31 | ED PDOC ---
Arrival/HPI - General Time Seen by Provider: 12/01/17 17:29 Historian: Patient - History of Present Illness Narrative History of Present Illness (Text): 12/01/17 17:30 52 yo female, pmh including htn/pe/asthma/seizure/anemia/bowel obstruction, penicillin and reglan allergy, complaining of lt. calf pain started yesterday with no fall or trauma. Aching pain, aggravated by palpitation, concerning for the DVT as she not been taking coumadin 5mg po qd for the past several days for her chronic PE which she been taking it for the past few years, no night sweat, no chest pain or shortness of breath, no night sweat, no rash, no numbness or tingling, no pleuritic pain, no back pain, nonradiating, no urinary or bowel incontinence or retention, no other medical or psychological complaints. Past Medical History - Provider Review Nursing Documentation Reviewed: Yes - Infectious Disease Hx of Infectious Diseases: None - Cardiac Hx Cardiac Disorders: Yes Hx Hypertension: Yes Other/Comment: lle dvt - Pulmonary Hx Respiratory Disorders: Yes (pe x4 at same time 2006) Hx Asthma: Yes - Neurological Hx Neurological Disorder: Yes Hx Seizures: Yes (hx of 3-4 years ago) - HEENT Hx HEENT Disorder: No - Renal Hx Renal Disorder: No - Endocrine/Metabolic Hx Endocrine Disorders: No - Hematological/Oncological Hx Blood Disorders: Yes Hx Anemia: Yes Other/Comment: iron infusions - Integumentary Hx Dermatological Disorder: No - Musculoskeletal/Rheumatological Hx Falls: No - Gastrointestinal Hx Gastrointestinal Disorders: Yes (chronic constipation) - Genitourinary/Gynecological Hx Genitourinary Disorders: No - Psychiatric Hx Substance Use: No - Surgical History Hx Hysterectomy: Yes Other/Comment: bowel obstruction repair, tubal ligation, sebaceous cyst removed from near Left ear, umbilical hernia repair - Anesthesia Hx Anesthesia: Yes Hx Anesthesia Reactions: No Family/Social History - Physician Review Nursing Documentation Reviewed: Yes Family/Social History: Unknown Family HX Smoking Status: Never Smoked Hx Alcohol Use: No Hx Substance Use: No Hx Substance Use Treatment: No Allergies/Home Meds Allergies/Adverse Reactions: Allergies amoxicillin Allergy (Verified 05/14/17 12:10) RASH metoclopramide Allergy (Verified 05/14/17 12:10) RASH Home Medications: Home Meds Medication Instructions Recorded Confirmed Ondansetron ODT [Zofran ODT] 4 mg PO PRN PRN 08/05/14 12/01/17 Warfarin [Coumadin] 5 mg PO DAILY 08/05/14 12/01/17 Albuterol HFA [Ventolin HFA 90 0.09 mg IH PRN PRN 05/14/17 12/01/17 mcg/actuation (8 g)] Linaclotide [Linzess] 290 mcg PO DAILY 05/14/17 12/01/17 Losartan Potassium 100 mg PO DAILY 05/14/17 12/01/17 Meclizine HCl 50 mg PO DAILY PRN 05/14/17 12/01/17 Propranolol [Inderal] 10 mg PO DAILY 05/14/17 12/01/17 Review of Systems - Review of Systems Constitutional: absent: Fatigue, Fevers Eyes: absent: Vision Changes ENT: absent: Hearing Changes Respiratory: absent: SOB, Cough Cardiovascular: absent: Chest Pain Gastrointestinal: absent: Abdominal Pain, Diarrhea, Nausea, Vomiting Musculoskeletal: Myalgias Skin: absent: Rash, Pruritis Neurological: absent: Headache, Dizziness Hemo/Lymphatic: absent: Adenopathy Psychiatric: absent: Anxiety, Depression, Suicidal Ideation Physical Exam Vital Signs Reviewed: Yes Vital Signs Temp Pulse Resp BP Pulse Ox 12/01/17 17:41 97.6 F 68 18 145/98 H 100 Temperature: Afebrile Blood Pressure: Hypertensive Pulse: Regular Respiratory Rate: Normal Appearance: Positive for: Well-Appearing, Non-Toxic, Comfortable Pain Distress: Mild Mental Status: Positive for: Alert and Oriented X 3 - Systems Exam Head: Present: Atraumatic, Normocephalic Pupils: Present: PERRL Extroacular Muscles: Present: EOMI Conjunctiva: Present: Normal Mouth: Present: Moist Mucous Membranes Neck: Present: Normal Range of Motion Respiratory/Chest: Present: Clear to Auscultation, Good Air Exchange. No: Respiratory Distress, Accessory Muscle Use Cardiovascular: Present: Regular Rate and Rhythm, Normal S1, S2. No: Murmurs Abdomen: Present: Normal Bowel Sounds. No: Tenderness, Distention, Peritoneal Signs Back: Present: Normal Inspection Upper Extremity: Present: Normal Inspection. No: Cyanosis, Edema Lower Extremity: Present: Normal Inspection, Other (+ttp on the left calf region with +DPPT pulses, capillary refill< 2 seconds, neurovascular intact. ). No: Edema Neurological: Present: GCS=15, CN II-XII Intact, Speech Normal, Motor Func Grossly Intact, Gait Normal, Memory Normal Skin: Present: Warm, Dry, Normal Color. No: Rashes Psychiatric: Present: Alert, Oriented x 3, Normal Insight, Normal Concentration Medical Decision Making ED Course and Treatment: 12/01/17 17:44 -LLE venuous doppler -PT/INR -Observe and reassess 12/01/17 18:44 -CBC show no acute findings -INR 1.09, subtherapeutic, coumadin 5mg po ordered for the patient as she didn' t it take it today or for the past 5 days as she is out of the prescription. -LLE venuous doppler show no acute DVT as per preliminary report. -Discharge home with coumadin 5mg po qd and your INR is 1.09 today, repeat INR in 1 week after taking your coumadin, take tylenol for pain as needed and avoid advil/ibuprofen/naproxen/NSAIDS, please be compliant with your medications, follow up with your own pmd and marketing senior recruiter/oncologist within2 days, return to the ER for any new or worsening signs or symptoms. - Lab Interpretations Lab Results: 12/01/17 17:43 Lab Results 12/01/17 17:43: WBC 6.0 D, RBC 4.06, Hgb 11.6 L, Hct 36.0, MCV 88.7, MCH 28.6, MCHC 32.2, RDW 13.3, Plt Count 270, MPV 9.9, Gran % 38.8 L, Lymph % (Auto) 53.0 H, [place] % (Auto) 5.2, Eos % (Auto) 2.5, Baso % (Auto) 0.5, Gran # 2.32, Lymph # (Auto) 3.2, [place] # (Auto) 0.3, Eos # (Auto) 0.2, Baso # (Auto) 0.03 12/01/17 17:43: PT 12.4, INR 1.09 H, APTT 30.9 I have reviewed the lab results: Yes - RAD Interpretation Radiology Orders: 12/01/17 17:43 DUPLEX LOWER EXTRM VEIN LEFT [US] Stat LLE Venous Doppler: As per preliminary report, no acute DVT Hydraulic And Plumbing Installer: Radiologist - Medication Orders Current Medication Orders: Discontinued Medications Warfarin Sodium (Coumadin) 5 mg PO STAT STA PRN Reason: Protocol Stop: 12/01/17 18:37 - PA / COREMAKING SUPERVISOR / Resident Statement MD/DO has reviewed & agrees with the documentation as recorded. Disposition/Present on Arrival - Present on Arrival Any Indicators Present on Arrival: No History of DVT/PE: No History of Uncontrolled Diabetes: No Urinary Catheter: No History of Decub. Ulcer: No History Surgical Site Infection Following: None - Disposition Have Diagnosis and Disposition been Completed?: Yes Diagnosis: Leg pain, Subtherapeutic international normalized ratio (INR) Disposition: HOME/ ROUTINE Disposition Time: 17:48 Patient Plan: Discharge Patient Problems: Current Active Problems Problem Status Onset Leg pain Acute Subtherapeutic international normalized ratio (INR) Acute Condition: GOOD Additional Instructions: -Discharge home with coumadin 5mg po qd and your INR is 1.09 today, repeat INR in 1 week after taking your coumadin, take tylenol for pain as needed and avoid advil/ibuprofen/naproxen/NSAIDS, please be compliant with your medications, follow up with your own pmd and marketing senior recruiter/oncologist within2 days, return to the ER for any new or worsening signs or symptoms. Prescriptions: Warfarin [Coumadin] 5 mg PO DAILY #21 tab Referrals: Onesimo Edmonds, [Primary Care Provider] - Follow up with primary Tana Roe MD [Staff Provider] - Follow up with primary Forms: WORK NOTE
[2017-12-01 17:37] VITALS: BMI 29.4
[2017-12-01 17:42] VITALS: RESP 18; TEMP 97.6; O2SAT 100
[2017-12-01 17:55] LABS: BASO # 0.03 K/mm3 (0.0-2.0); BASO % 0.5 % (0.0-3.0); EOS # 0.2 (0.0-0.7); EOS % 2.5 % (1.5-5.0); GRAN # 2.32 (1.4-6.5); GRAN % 38.8 % (50.0-68.0); HEMOGLOBIN 11.6 g/dL (12.0-16.0); LYMPH # 3.2 (1.2-3.4); MEAN CELL VOLUME 88.7 fl (80.0-105.0); MEAN CORPUSCULAR HEMOGLOBIN 28.6 pg (25.0-35.0); MEAN CORPUSCULAR HGB CONC 32.2 g/dl (31.0-37.0); MEAN PLATELET VOLUME 9.9 fl (7.0-11.0); MONO # 0.3 (0.1-0.6); MONO % 5.2 % (1.0-6.0); RBC 4.06 10^6/uL (3.5-6.1); RED CELL DISTRIBUTION WIDTH 13.3 % (11.5-14.5)
[2017-12-01 18:08] LABS: INR 1.09 (0.93-1.08); PARTIAL THROMBOPLASTIN TIME 30.9 Seconds (25.1-36.5); PROTHROMBIN TIME 12.4 SECONDS (9.4-12.5)
[2017-12-01 18:59] VITALS: BP 140/82; PULSE 71
--- NOTE | 2017-12-02 09:34 | US ---
PROCEDURE: Left lower extremity venous US HISTORY: Leg pain and swelling. Evaluate for DVT. PHYSICIAN(S): Vineet Heard MD. TECHNIQUE: Duplex sonography and color-flow Doppler with graded compression were used to evaluate the deep venous system of the left lower extremity. FINDINGS: The visualized deep venous system of the left lower extremity is sonographically normal and compressible. Normal wave forms and augmentation are seen. There is no sonographic evidence for deep venous thrombosis in the visualized segments of the left lower extremity. IMPRESSION: 1. No sonographic evidence for deep venous thrombosis in the visualized segments of the left lower extremity.
== END 2017-12-01 18:59 | disposition home or self-care (01) ==
LOC: ED 17:26
DX: M79.605 Pain in left leg (principal); R79.1 Abnormal coagulation profile; I10 Essential (primary) hypertension; D64.9 Anemia, unspecified; Z86.711 Personal history of pulmonary embolism; Z79.01 Long term (current) use of anticoagulants

== ENCOUNTER 2018-11-11 10:59 | Emergency (ER) | payer OTHER ==
[2018-11-11 11:25] VITALS: BMI 30.8
[2018-11-11] MEDS ORDERED: Levalbuterol 1.25 MG/3 ML Inhal Soln UD IH STA ×3 (11:45)
--- NOTE | 2018-11-11 12:17 | ED PDOC ---
Arrival/HPI - General Chief Complaint: Shortness Of Breath Time Seen by Provider: 11/11/18 11:23 Historian: Patient - History of Present Illness Narrative History of Present Illness (Text): 11/11/18 12:14 53yo female with pmhx of Asthma, seizure who present with complaint of nonproductive cough, chest pain with cough,chest congestion x 2months. states she saw her PMD for these symptoms was was given unknown medication which she finished without relieve. States the cold symptoms is triggering her Asthma. She uses inhaler at home. she denies fever, chills, nausea, abdominal pain, diaphoresis, LE edema, any other complaint. Past Medical History - Provider Review Nursing Documentation Reviewed: Yes - Infectious Disease Hx of Infectious Diseases: None - Reproductive Currently : No - Cardiac Hx Cardiac Disorders: Yes Hx Hypertension: Yes Other/Comment: lle dvt - Pulmonary Hx Respiratory Disorders: Yes (pe x4 at same time 2006) Hx Asthma: Yes - Neurological Hx Neurological Disorder: Yes Hx Seizures: Yes (hx of 3-4 years ago) - HEENT Hx HEENT Disorder: No - Renal Hx Renal Disorder: No - Endocrine/Metabolic Hx Endocrine Disorders: No - Hematological/Oncological Hx Blood Disorders: Yes Hx Anemia: Yes Other/Comment: iron infusions - Integumentary Hx Dermatological Disorder: No - Musculoskeletal/Rheumatological Hx Musculoskeletal Disorders: No - Gastrointestinal Hx Gastrointestinal Disorders: Yes (chronic constipation) - Genitourinary/Gynecological Hx Genitourinary Disorders: No - Psychiatric Hx Psychophysiologic Disorder: No Hx Substance Use: No - Surgical History Hx Hysterectomy: Yes Other/Comment: bowel obstruction repair, tubal ligation, sebaceous cyst removed from near Left ear, umbilical hernia repair - Anesthesia Hx Anesthesia: Yes Hx Anesthesia Reactions: No Family/Social History - Physician Review Nursing Documentation Reviewed: Yes Family/Social History: Unknown Family HX Smoking Status: Never Smoked Hx Alcohol Use: No Hx Substance Use: No Hx Substance Use Treatment: No Allergies/Home Meds Allergies/Adverse Reactions: Allergies amoxicillin Allergy (Verified 11/11/18 11:25) RASH metoclopramide Allergy (Verified 11/11/18 11:25) RASH Home Medications: Home Meds Medication Instructions Recorded Confirmed RX: Albuterol HFA [Ventolin HFA 90 0.09 mg IH PRN PRN 05/14/17 11/11/18 mcg/actuation (8 g)] RX: Meclizine HCl 50 mg PO DAILY PRN 05/14/17 11/11/18 Benzonatate 200 mg PO DAILY 11/11/18 11/11/18 RX: Clarithromycin [Biaxin Filmtab] 500 mg PO DAILY 11/11/18 11/11/18 RX: Hydrochlorothiazide [Microzide] 25 mg PO DAILY 11/11/18 11/11/18 RX: Promethazine [Phenergan Syrup] 6.25 mg PO DAILY 11/11/18 11/11/18 RX: amLODIPine [Norvasc] 5 mg PO DAILY 11/11/18 11/11/18 Review of Systems - Physician Review All systems were reviewed & negative as marked: Yes - Review of Systems Constitutional: Normal Eyes: Normal ENT: Normal Respiratory: SOB, Cough. absent: Sputum, Wheezing Cardiovascular: Normal Gastrointestinal: Normal Genitourinary Female: Normal Musculoskeletal: Normal Skin: Normal Neurological: Normal Endocrine: Normal Hemo/Lymphatic: Normal Psychiatric: Normal Physical Exam Vital Signs Reviewed: Yes Vital Signs Temp Pulse Resp BP Pulse Ox 11/11/18 11:35 98.4 F 100 H 22 147/83 100 Temperature: Afebrile Blood Pressure: Normal Pulse: Regular Respiratory Rate: Normal Appearance: Positive for: Well-Appearing, Non-Toxic, Comfortable Pain Distress: None Mental Status: Positive for: Alert and Oriented X 3 - Systems Exam Head: Present: Atraumatic, Normocephalic Pupils: Present: PERRL Extroacular Muscles: Present: EOMI Conjunctiva: Present: Normal Mouth: Present: Moist Mucous Membranes Neck: Present: Normal Range of Motion Respiratory/Chest: Present: Clear to Auscultation, Good Air Exchange. No: Respiratory Distress, Accessory Muscle Use, Wheezes, Decreased Breath Sounds, Rales, Retracting, Rhonchi, Tachypneic Cardiovascular: Present: Regular Rate and Rhythm, Normal S1, S2. No: Murmurs Abdomen: No: Tenderness, Distention, Peritoneal Signs Back: Present: Normal Inspection Upper Extremity: Present: Normal Inspection. No: Cyanosis, Edema Lower Extremity: Present: Normal Inspection. No: Edema Neurological: Present: GCS=15, CN II-XII Intact, Speech Normal Skin: Present: Warm, Dry, Normal Color. No: Rashes Psychiatric: Present: Alert, Oriented x 3, Normal Insight, Normal Concentration Medical Decision Making ED Course and Treatment: 11/12/18 19:44 53yo female who present with stated history. She was not in any distress in ED. On re evaluation s/p medication her lung was CTA b/l chest xray IMPRESSION: No active disease. Rapid flu was negative Result was DW the pt and she was DC home with Prednisone to continue with her inhaler - RAD Interpretation Radiology Orders: 11/11/18 11:43 CHEST TWO VIEWS (PA/LAT) [RAD] Stat - Medication Orders Current Medication Orders: Discontinued Medications Levalbuterol HCl (Xopenex) 1.25 mg IH STAT STA Stop: 11/11/18 11:46 Levalbuterol HCl (Xopenex) 1.25 mg IH STAT STA Stop: 11/11/18 11:46 Levalbuterol HCl (Xopenex) 1.25 mg IH STAT STA Stop: 11/11/18 11:46 Prednisone (Prednisone Tab) 60 mg PO STAT ONE Stop: 11/11/18 11:45 Disposition/Present on Arrival - Present on Arrival Any Indicators Present on Arrival: No History of DVT/PE: Yes History of Uncontrolled Diabetes: No Urinary Catheter: No History of Decub. Ulcer: No History Surgical Site Infection Following: None - Disposition Have Diagnosis and Disposition been Completed?: Yes Diagnosis: Cough Disposition: HOME/ ROUTINE Disposition Time: 14:40 Patient Plan: Discharge Condition: STABLE Discharge Instructions (ExitCare): Cough in Adults Additional Instructions: Follow up with your doctor Return to ED for any new or worsening symptoms Prescriptions: RX: Prednisone 50 mg PO DAILY #4 tab Referrals: Demetrius Tijerina MD [Primary Care Provider] - Follow up with primary Forms: Perfect (British)
--- NOTE | 2018-11-11 14:16 | RAD ---
Date of service: 11/11/2018 HISTORY: cough COMPARISON: 05/14/2017 TECHNIQUE: Chest PA and lateral FINDINGS: LUNGS: No active pulmonary disease. PLEURA: No significant pleural effusion identified. No pneumothorax apparent. CARDIOVASCULAR: No aortic atherosclerotic calcification present. Normal cardiac size. No pulmonary vascular congestion. OSSEOUS STRUCTURES: No significant abnormalities. VISUALIZED UPPER ABDOMEN: Normal. OTHER FINDINGS: None. IMPRESSION: No active disease.
[2018-11-11 15:03] VITALS: BP 143/74; PULSE 116; RESP 18; TEMP 98.1; O2SAT 99
--- NOTE | 2018-11-11 20:16 | CARD ---
APPROVED REPORT Date of service: 11/11/2018 EKG Measurement Heart [id number] <Conclusion> Sinus tachycardia Otherwise normal ECG
== END 2018-11-11 15:06 | disposition home or self-care (01) ==
LOC: ED 10:59
DX: R05 Cough (principal); I10 Essential (primary) hypertension